=== PATIENT | male | born 1980 | race American Indian/Alaskan Native ===

== ENCOUNTER 2016-08-21 08:52 | Emergency (ER) | payer BC ==
[2016-08-21] MEDS ORDERED: MOTRIN PO ONE (11:19)
--- NOTE | 2016-08-21 11:26 | Emergency Department Report ---
ED General Adult HPI - General Chief complaint: Shoulder Injury Stated complaint: LFT SHOULDER INJURY Time Seen by Provider: 08/21/16 11:13 Source: patient Mode of arrival: Ambulatory Limitations: No Limitations - History of Present Illness Initial comments: PT states 1 year ago his was pushing boxes down a ramp and he injured his left shoulder. PT states that the bone in his shoulder popped up. PT states he did not seek medical treatment. PT states his left shoulder pain resolved and then would return intermittently and mildly. PT states yesterday he was at the gym and he was doing reclined bench press and he re-injured his shoulder. PT c/o L shoulder pain 11/23. PT has not taken anything medication for his pain. MD Complaint: L shoulder injury Onset/Timin -: Sudden, days(s) Location: left, upper extremity (shoulder ) Severity scale (0 -10): 8 Quality: sharp, constant Consistency: constant Worsens with: movement Associated Symptoms: denies: chest pain, fever/chills, nausea/vomiting, shortness of breath Treatments Prior to Arrival: none - Related Data Previous Rx's Medication Instructions Recorded Last Taken Type Ibuprofen [Motrin] 600 mg PO Q8H PRN #15 tablet 08/21/16 Unknown Rx methOCARBAMOL [Robaxin TAB] 500 mg PO Q6H PRN #15 tablet 08/21/16 Unknown Rx traMADol [Ultram] 50 mg PO Q6HR PRN #12 tablet 08/21/16 Unknown Rx Allergies Allergy/AdvReac Type Severity Reaction Status Date / Time No Known Allergies Allergy Unverified 08/21/16 09:03 ED Review of Systems ROS: Stated complaint: LFT SHOULDER INJURY Other details as noted in HPI Comment: All other systems reviewed and negative Constitutional: denies: chills, fever Respiratory: denies: shortness of breath Gastrointestinal: denies: abdominal pain, nausea, vomiting Skin: as per HPI ED Past Medical Hx - Past Medical History Previous Medical History?: No - Surgical History Past Surgical History?: No - Social History Smoking Status: Never Smoker Substance Use Type: None - Medications Home Medications: Home Medications Medication Instructions Recorded Confirmed Last Taken Type Ibuprofen [Motrin] 600 mg PO Q8H PRN #15 tablet 08/21/16 Unknown Rx methOCARBAMOL [Robaxin TAB] 500 mg PO Q6H PRN #15 tablet 08/21/16 Unknown Rx traMADol [Ultram] 50 mg PO Q6HR PRN #12 tablet 08/21/16 Unknown Rx ED Physical Exam - General Limitations: No Limitations General appearance: alert, in no apparent distress - Head Head exam: Present: atraumatic, normocephalic - Eye Eye exam: Present: normal appearance, EOMI. Absent: conjunctival injection - ENT ENT exam: Present: normal exam, normal external ear exam - Neck Neck exam: Present: normal inspection, full ROM - Respiratory Respiratory exam: Present: normal lung sounds bilaterally. Absent: respiratory distress - Cardiovascular Cardiovascular Exam: Present: regular rate, normal rhythm - Extremities Exam Extremities exam: Present: full ROM, tenderness, normal capillary refill - Expanded Upper Extremity Exam Left Shoulder Exam: Present: full ROM, tenderness, swelling, deformity (near AC joint ), tenderness over AC joint. Absent: dislocation Elbow exam: Present: normal inspection, full ROM Hand Wrist exam: Present: normal inspection, full ROM. Absent: tenderness, swelling - Back Exam Back exam: Present: normal inspection, full ROM. Absent: tenderness - Neurological Exam Neurological exam: Present: alert, oriented X3, normal gait - Psychiatric Psychiatric exam: Present: normal affect, normal mood - Skin Skin exam: Present: warm, dry, intact, normal color ED Course Vital Signs 08/21/16 09:03 Temperature 98.2 F Pulse Rate 70 Respiratory 18 Rate Blood Pressure 137/94 O2 Sat by Pulse 99 Oximetry - Reevaluation(s) Reevaluation #1: 08/21/16 11:28 PT aware of plan of care. PT has no hx of htn. PT was advised to follow up with PCP for BP recheck Reevaluation #2: 08/21/16 12:50 PT aware of XR results and plan of care. PT has no questions at this time. Reevaluation #3: 08/21/16 13:21 nursing staff applied sonido pt nvi - Pulse Oximetry Interpretation Digit-Finger Initial Pulse Oximetry Readin Actions Taken: none ED Medical Decision Making - Radiology Data Radiology results: report reviewed, image reviewed XR L shoulder - NAP - Differential Diagnosis AC seperation, fx, strain Critical Care Time: No Critical care attestation.: If time is entered above; I have spent that time in minutes in the direct care of this critically ill patient, excluding procedure time. ED Disposition Clinical Impression: Left shoulder pain Qualifiers: Chronicity: unspecified Qualified Code(s): M25.512 - Pain in left shoulder Disposition: DISCHARGED TO HOME OR SELFCARE Is pt being admited?: No Does the pt Need Aspirin: No Condition: Stable Instructions: Shoulder Sprain (ED), RICE Therapy (ED) Additional Instructions: Do not wear your sling for longer than a week Do not drive, operate heavy machinery or drink ETOH after taking Robaxin or Ultram Prescriptions: Ibuprofen [Motrin] 600 mg PO Q8H PRN #15 tablet PRN Reason: Pain methOCARBAMOL [Robaxin TAB] 500 mg PO Q6H PRN #15 tablet PRN Reason: Muscle Spasm traMADol [Ultram] 50 mg PO Q6HR PRN #12 tablet PRN Reason: Pain Referrals: PRIMARY CARE, [Primary Care Provider] - 3-5 Days JAMILA TO MD [Staff Physician] - 3-5 Days CLAUDIA RICHARDSON MD [Staff Physician] - 3-5 Days Forms: Work/School Release Form(ED) Time of Disposition: 12:52
--- NOTE | 2016-08-21 11:51 | XRay Report ---
LEFT SHOULDER RADIOGRAPHS INDICATION: Pain. COMPARISON: None similar at this institution. FINDINGS: Frontal and Y views of the left shoulder, 3 projections demonstrate normal humeral head contour, well positioned against the glenoid. Normal acromioclavicular joint. Acromial enthesophytosis. Preserved scapular contour. Normal visualized soft tissues, left ribs and lung. CONCLUSION: No acute left shoulder radiographic abnormality, as described. Thank you for the opportunity to participate in this patient's care.
[2016-08-21 13:31] VITALS: BP 130/74
== END 2016-08-21 13:25 | disposition home or self-care (01) ==
LOC: ED 08:52
DX: M25.512 Pain in left shoulder (principal); X58.XXXA Exposure to other specified factors, initial encounter; Y93.89 Activity, other specified; Y99.9 Unspecified external cause status; Y92.89 Other specified places as the place of occurrence of the external cause